=== PATIENT | male | born 1940 | race Caucasian/White ===

== ENCOUNTER 2023-01-16 15:05 | Emergency (ER) | payer MEDICARE, BC ==
[~2023-01-16] VITALS: Ht 175.3 cm; Wt 83.6 kg
[2023-01-16 15:22] VITALS: TEMP 98.2
[2023-01-16] MEDS ORDERED: bacitracin 15gm ointment TP ONE (16:30)
[2023-01-16] MEDS ORDERED: LIDOcaine 1% W/epiNEPHrine 1:100,000 20ml vial SQ ONE (16:30)
[2023-01-16] MEDS ORDERED: TETanus/Pertussis (Acell)/Diphther VAC/PF (Tdap-Adult) 0.5ml syringe IMVAC ONE (16:30)
[2023-01-16] MEDS ORDERED: ceFAZolin/D5W- 1GM premix 50 ML IV STA (16:39)
[2023-01-16 17:38] VITALS: BP 154/70; PULSE 62; RESP 15; O2SAT 98
== END 2023-01-16 17:40 | disposition home or self-care (01) ==
LOC: ER 15:06
DX: S61.531A Puncture wound without foreign body of right wrist, initial encounter (principal); Z88.1 Allergy status to other antibiotic agents; W26.0XXA Contact with knife, initial encounter; Y93.89 Activity, other specified; Y92.89 Other specified places as the place of occurrence of the external cause; Y99.8 Other external cause status
CPT/HCPCS: 12001; 90471; 90715; 96365; 99284; J0690; A6258; A6449